=== PATIENT | male | born 1985 | race Caucasian/White ===

== ENCOUNTER 2022-09-06 13:41 | Emergency (ER) | payer OTHER, SELFPAY ==
--- NOTE | ~2022-09-06 | CT_ITS ---
EXAMINATION: CT abdomen pelvis wo con DATE: 09/06/2022 16:05 INDICATION: right flank pain TECHNIQUE: Computed tomography (CT) of the abdomen and pelvis was performed without intravenous contr ast. Automated exposure control and iterative reconstruction technique were employed. The dose-length product was 731.44 mGy-cm. COMPARISON: None. FINDINGS: Lower thorax: Small hiatal hernia. Mild cardiomegaly. Liver: Enlarged. Multiple cysts. Biliary/Gallbladder: Gallbladder is normal. No bile duct dilation. Pancreas: No mass or duct dilation. Spleen: Normal. Adrenals:No mass. Kidneys: No mass, stone, or hydronephrosis. GI tract: No small or large bowel dilation. Normal appendix. Mesentery/Peritoneum: No ascites, mass, or free air. Retroperitoneum: No mass. Pelvis: Pelvic organs are within normal limits. Soft Tissues: Soft tissues and body wall unremarkable. Bones: No acute osseous finding. IMPRESSION: No acute abdominopelvic process detected. Cardiomegaly. Hepatomegaly. Reviewed, dictated and finalized at location K. NCE BRIDGE INSPECTOR
[2022-09-06 13:45] VITALS: BP 170/73; PULSE 77; RESP 20; TEMP 37.2; O2SAT 100
--- NOTE | 2022-09-06 15:51 | ED.BACK ---
HPI - Back Pain/Injury General Chief Complaint: Back Pain/Injury Stated Complaint: LOWER BACK PAIN Time Seen by Provider: 09/06/22 14:59 Source: patient and RN notes reviewed Mode of arrival: wheelchair Limitations: no limitations History of Present Illness HPI Narrative: This is a 36 year old male who presents for evaluation of right lower back pain. He states he has been dealing with low back pain for years but he has never had pain this severe. He developed severe nonradiation right lower back pain this morning when he got up. His pain is worse with trying to walk or stand. He has not taken any thing for his pain. He denies leg weakness, numbness, tingling, nausea or vomiting. He reports chills and subjective fever last night. He rates his pain as 5/10 with sitting in wheel chair and not moving. Related Data Allergies Allergy/AdvReac Type Severity Reaction Status Date / Time No Known Allergies Allergy Verified 09/06/22 13:48 Review of Systems Review of Systems: All systems reviewed & are unremarkable except as noted in HPI and below Constitutional: Constitutional: Reports chills, Denies fatigue and Reports fever(s) ENT: Denies nasal congestion and Denies sore throat Respiratory: Respiratory: Reports cough Gastrointestinal: Gastrointestinal: Denies abdominal pain, Denies nausea and Denies vomiting Genitourinary: Genitourinary: Denies hematuria, Denies oliguria, Denies testicular pain and Denies urinary frequency Musculoskeletal: Musculoskeletal: Reports back pain PMFSH Past Medical History Medical History Patient denies medical problems Surgical History Surgical History No pertinent past surgical history Social History Social History (Updated 09/06/22 @ 15:54 by Guillermina Carrera MD) Smoking status: Never smoker Exam Const: General: no acute distress Nutritional Appearance: well nourished Orientation/consciousness: patient oriented x3 HENMT: Head: normal to inspection Eyes: EOM: EOMs intact bilaterally Neck: Neck: normal visual inspection Chest: Chest palpation & inspection: normal inspection of the chest Resp: Effort & Inspection: normal respiratory effort Auscultation: clear to auscultation bilaterally Cardio: Rate: regular rate Rhythm: regular rhythm Heart sounds: no murmurs GI: GI Palp: Yes Soft to palpation, No Tenderness to palpation present (GI), No Guarding due to palpation present (GI) and No Rigid due to palpation Auscultation: normal bowel sounds : General: Yes no CVA tenderness Back/Spine/Pelvis: Back: no CVA tenderness Skin: General skin exam: normal color Rashes: no rashes Wounds: no wounds Neuro: General: patient oriented x3, moves all extremities and CN's II-XI intact bilaterally Speech: normal speech Extrem: General: normal to inspection Psych: Mental Status: mental status grossly normal Affect: normal affect Attitude: cooperative Course Reevaluation(s) Reevaluation #1: I have discussed with patient that he has been found to have influenza A as cause of his subjective fever and chills last night. Ct does not show kidney stone. His pain is likely back sprain. I have discussed discharge plan and follow up . HE is no acute distress. He states he does not need work note. Date: 09/06/22 Time: 17:18 Vital Signs Vital signs: Vital Signs Temperature 99.0 F 09/06/22 13:45 Pulse Rate 77 09/06/22 13:45 Respiratory Rate 20 09/06/22 13:45 Blood Pressure 170/73 H 09/06/22 13:45 Pulse Oximetry 100 09/06/22 13:45 Oxygen Delivery Room Air 09/06/22 13:45 Temperature 99.0 F 09/06/22 13:45 Pulse Rate 94 09/06/22 17:30 Respiratory Rate 16 09/06/22 17:30 Blood Pressure 155/96 H 09/06/22 17:30 Pulse Oximetry 97 09/06/22 17:30 Oxygen Delivery Room Air 09/06/22 13:45 MDM - Back Pain/Injury Lab Data Attest
[2022-09-06] MEDS: HYDROmorphone HCL INJ (*CRX) 1 MG/ML SYR 0.5 MG IV PUSH (15:52)
[2022-09-06] MEDS: ONDANSETRON INJ 4 MG/2 ML VIAL IV PUSH (15:54)
[2022-09-06] MEDS: SODIUM CHLORIDE 0.9% IV 1,000 ML 999 ML IV CONT (15:55)
[2022-09-06 16:23] LABS: Basophils Percent Auto 0.3 % (0.2-1.2); Eosinophils Absolute Auto 0.2 K/mm3 (0-0.3); Hematocrit 51.6 % (42.0-52.0); Immature Granulocyte Absolute 0.01 K/mm3 (0.00-0.031); Immature Granulocyte Percent A 0.2 % (0-0.5); Lymphocytes Absolute Auto 0.67 K/mm3 (0.9-3.2); Lymphocytes Percent Auto 11.7 % (18.3-44.2); Mean Corpuscular HGB Conc 32.9 g/dl (32-36); Mean Corpuscular Hemoglobin 32.4 pg (26-34); Mean Corpuscular Volume 98.3 fl (80-100); Mean Platelet Volume 9.6 fl (7.4-10.4); Monocytes Absolute Auto 0.9 K/mm3 (0.1-0.6); Monocytes Percent Auto 15.4 % (2.6-8.5); Neutrophils Percent Auto 69.4 % (45.5-73.1); Platelet Count Result 190 k/mm3 (150-375); Red Blood Count 5.25 M/mm3 (4.6-6.20); Red Cell Distribution Width 12.7 % (11.5-14.5); White Blood Count 5.7 K/mm3 (4.5-10.0)
[2022-09-06 16:27] LABS: Appearance Urine Clear (Clear); Bilirubin Urine Negative (Negative); Blood Urine Negative (Negative); Color Urine Yellow (Yellow); Glucose Urine UA Negative (Negative); Ketones Urine Negative (Negative); Leukocyte Esterase Ur Negative LEU/UL (Negative); Nitrate Urine Negative (Negative); Protein Urine Negative (Negative); pH Urine 7.5 (5.0-9.0)
[2022-09-06 16:29] LABS: Add Urine Microscopic? NO
[2022-09-06 16:37] LABS: Alanine Aminotransferase 51 U/L (6-50); Albumin Level 4.3 g/dL (3.5-5.1); Alkaline Phosphatase 51 U/L (38-126); Anion Gap 8 mmol/L (8-16); Aspartate Amino Transferase 57 U/L (17-59); Bilirubin,Total 0.5 mg/dL (0.2-1.3); Blood Urea Nitrogen 7 mg/dL (9-20); Calcium 8.7 mg/dL (8.4-10.2); Carbon Dioxide 28 mmol/L (22-30); Chloride 99 mmol/L (98-107); Estimated CRCL calculation 127 ml/min; Estimated Glomerular Filt Rate > 60; Glucose 83 mg/dL (65-110); Potassium 4.1 mmol/L (3.4-5.0); Sodium 135 mmol/L (137-145)
[2022-09-06 16:58] LABS: Influenza A QL RT-PCR Positive (Negative); Influenza B QL RT-PCR Negative (Negative); SARS-CoV-2 RNA PCR Negative
[2022-09-06 17:30] VITALS: BP 155/96; PULSE 94; RESP 16; O2SAT 97
[2022-09-06] MEDS: KETOROLAC 30 MG/ML VIAL (*BKC) IV PUSH (17:30)
[2022-09-06] MEDS: methocarbamoL 500 MG TABLET PO (17:54)
[2022-09-06] MEDS: OSELTAMIVIR PHOSPHATE 75 MG CAPSULE PO (17:54)
== END 2022-09-06 18:16 | disposition home or self-care (01) ==
PROVIDERS: Emergency Provider General Practice
DX: J10.1 Influenza due to other identified influenza virus with other respiratory manifestations (principal); M54.50 Low back pain, unspecified; Z20.822 Contact with and (suspected) exposure to COVID-19
CPT/HCPCS: 36415; 74176; 80053; 81003; 85025; 87636; 96361; 96374; 96375; 99284; A9270; J1170; J1885; J2405; J7030

== ENCOUNTER 2023-07-12 10:28 | Emergency (ER) | payer OTHER, SELFPAY ==
[2023-07-12 10:46] VITALS: BP 192/84; PULSE 77; RESP 18; TEMP 36.8; O2SAT 99
[2023-07-12 11:41] LABS: Basophils Percent Auto 0.4 % (0.2-1.2); Eosinophils Absolute Auto 0.1 K/mm3 (0-0.3); Eosinophils Percent Auto 0.8 % (0-4.4); Hematocrit 51.4 % (42.0-52.0); Hemoglobin 17.1 g/dL (14.0-18.0); Immature Granulocyte Absolute 0.03 K/mm3 (0.00-0.031); Immature Granulocyte Percent A 0.3 % (0-0.5); Lymphocytes Absolute Auto 1.32 K/mm3 (0.9-3.2); Mean Corpuscular HGB Conc 33.3 g/dl (32-36); Mean Corpuscular Hemoglobin 31.7 pg (26-34); Mean Corpuscular Volume 95.2 fl (80-100); Mean Platelet Volume 8.9 fl (7.4-10.4); Monocytes Absolute Auto 0.7 K/mm3 (0.1-0.6); Monocytes Percent Auto 6.7 % (2.6-8.5); Neutrophils Absolute Auto 8.8 K/mm3 (1.3-6.7); Neutrophils Percent Auto 79.8 % (45.5-73.1); Platelet Count Result 272 k/mm3 (150-375); Red Cell Distribution Width 12.8 % (11.5-14.5)
[2023-07-12 11:50] LABS: Alanine Aminotransferase 61 U/L (6-50); Albumin Level 4.3 g/dL (3.5-5.1); Alkaline Phosphatase 48 U/L (38-126); Anion Gap 6 mmol/L (8-16); Aspartate Amino Transferase 70 U/L (17-59); Bilirubin,Total 0.8 mg/dL (0.2-1.3); Blood Urea Nitrogen 9 mg/dL (9-20); Calcium 9.3 mg/dL (8.4-10.2); Carbon Dioxide 27 mmol/L (22-30); Chloride 102 mmol/L (98-107); Estimated CRCL calculation 123 ml/min; Estimated Glomerular Filt Rate > 60; Glucose 89 mg/dL (65-110); Potassium 3.6 mmol/L (3.4-5.0); Sodium 135 mmol/L (137-145)
[2023-07-12 11:52] LABS: Prothrombin Time 13.2 Seconds (11.1-14.7)
[2023-07-12 11:53] LABS: Partial Thromboplastin Time 27.5 SECONDS (22.3-36.8)
--- NOTE | 2023-07-12 12:09 | PC.NURSE ---
assisted SUNDAR Stewart with Occ blood test. Blasting Entry Specialist provided.
--- NOTE | 2023-07-12 12:26 | ED.GENADULT ---
[facility] - General Adult General Chief complaint: GI Bleed Stated complaint: rectal bleeding Time Seen by Provider: 07/12/23 11:52 Source: patient Mode of arrival: ambulatory Limitations: no limitations History of Present Illness [facility] narrative: This is a 37-year-old male who presents to the ED with chief complaint of rectal bleeding beginning this morning. Reports bright red blood per rectum. Patient reports he had noticed some discomfort/fullness in the rectal area while trying to have a bowel movement. He reports tenesmus but difficulty with actually performing the bowel movement. Reports he noticed blood on the tissue paper and then noticed that blood was going into the toilet bowl. states he has never had anything like this before. Denies problems with urination, abdominal pain, nausea, vomiting. Denies melena. Related Data Allergies Allergy/AdvReac Type Severity Reaction Status Date / Time No Known Allergies Allergy Verified 07/12/23 10:48 Review of Systems Review of Systems: All systems as dictated in [facility] Past Medical History Medical History Patient denies medical problems Surgical History Surgical History No pertinent past surgical history Social History Social History (System 11/12/22 @ 12:46 by Heavenly Arroyo) Smoking status: Never smoker Second hand tobacco smoke exposure: No Alcohol intake: current Exam Narrative: GENERAL: Well-appearing, well-nourished, and in no acute distress. HEAD: Normocephalic, atraumatic. EYES: PERRLA and EOMI. ENT: Nares clear, no rhinorrhea or epistaxis. Mucous membranes moist. Oropharynx without tonsillar hypertrophy exudate or other lesions. NECK: Supple. No adenopathy or masses. CHEST: No respiratory distress. Clear to auscultation. No wheezes rales or rhonchi HEART: Regular rate and rhythm. No murmur heard. Normal peripheral pulses. ABDOMEN: Soft, nontender, nondistended, normal active bowel sounds. MSK: Normal range of motion. No edema. SKIN: Warm, dry, no rash. NEURO: Alert and oriented x3. No focal deficits. PSYCH: Normal mood and affect. Rectal exam performed with female RN button clamper present: No evidence of any external lesions including fissures or external hemorrhoids There is area of swelling to the internal rectum that is moderately tender. Hemoccult card is negative Course Vital Signs Vital signs: Vital Signs Temperature 98.2 F 07/12/23 10:46 Pulse Rate 77 07/12/23 10:46 Respiratory Rate 18 07/12/23 10:46 Blood Pressure 192/84 H 07/12/23 10:46 Pulse Oximetry 99 07/12/23 10:46 Temperature 98.2 F 07/12/23 10:46 Pulse Rate 82 07/12/23 12:42 Respiratory Rate 17 07/12/23 12:42 Blood Pressure 168/92 H 07/12/23 12:42 Pulse Oximetry 98 07/12/23 12:42 Medical Decision Making MDM Narrative Medical decision making narrative: This is a 37-year-old male who presents to the ED with chief complaint of bright red blood per rectum that occurred today while having a bowel movement. Reports some discomfort in the rectal area. Vitals show initial blood pressure pressure but otherwise intact. Physical exam is largely benign. Rectal exam is Hemoccult negative. He does have an area of swelling internally that may be consistent with internal hemorrhoids. Lab work shows very slightly elevated white count at 11.0 and normal hemoglobin and hematocrit. PT/INR is normal. CMP is largely unremarkable. Symptoms are most likely consistent with internal hemorrhoid. Low suspicion of infectious process. Feel that CT scan is of low diagnostic yield at this point. Shared decision making to avoid the CT and proceed with treatment for possible internal hemorrhoids. Anusol prescribed. Instructed on sitz bath's. GI referral given. Pt will be discharged in stable condition. Return precautions given and s
[2023-07-12 12:42] VITALS: BP 168/92; PULSE 82; RESP 17; O2SAT 98
== END 2023-07-12 12:43 | disposition home or self-care (01) ==
PROVIDERS: General Practice; Emergency Provider Physician Assistant
DX: K62.5 Hemorrhage of anus and rectum (principal)
CPT/HCPCS: 36415; 80053; 85025; 85610; 85730; 86850; 86900; 86901; 99283

== ENCOUNTER 2024-11-13 09:59 | Emergency (ER) | payer OTHER, SELFPAY ==
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
[2024-11-13 10:02] VITALS: BP 166/83; PULSE 82; RESP 18; TEMP 36.6; O2SAT 98
--- OUTSIDE RECORDS SUMMARY | 2024-11-13 10:44 | XMS_ITS | Clinical Summary ---
Author Organization [facility] [address] Address [address] [place] [address] Phone Care Team Providers Care Cured Meat Packing Supervisor Name Role Phone Jenn Dey NP Primary Care Provider [phone] Allergies No known active allergies Medications buPROPion XL (WELLBUTRIN XL) 150 mg 24 hr tablet Take 1 tablet (150 mg total) by mouth every morning for 10 days, THEN 2 tablets (300 mg total) every morning. 130 tablet 05/04/2022 Active Active Problems No known active problems Immunizations Name Administration Dates Next Due DTP 01/14/1990, 7,07/17/1986,05/15/1986,0 03/13/1986 Hep B Vaccine 04/02/1998 Hep B, Adolescent or Pediatric 11/06/1997,1996 Influenza, Unspecified 12/11/2021(Deferred: Lizette ent Refused) OPV 01/14/1990,05/14/1987,05/15/1986 ,03/13/1986 Social History Tobacco Use Types Packs/Day Years Used Date Smoking Tobacco: Former Smokeless Tobacco: Current PHQ-2 Answer Date Recorded PHQ-2 Total Score (If total score is 3 or more points, staff should administer the PHQ-9) 4 05/04/2022 Personal Safety Answer Date Recorded Getting School Help Needed Not on file 12/05 Sex and Gender Information Value Date Recorded Sex Assigned at Not on file 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 Gender Identity Not on file Sexual Orientation Not on file Obstetrics History Last Filed Vital Signs Vital Sign Reading Time Taken Comments Blood Pressure 144/77 05/04/2022 3:54 PM CDT Pulse 68 05/04/2022 3:54 PM CDT Temperature 36.7 ??C (98 ??F) 03/23/2022 3:49 PM CDT Respiratory Rate 20 05/04/2022 3:54 PM CDT Oxygen Saturation 98% 05/04/2022 3:54 PM CDT Inhaled Oxygen Concentration - - Weight 107 kg (236 lb) 05/04/2022 3:54 PM CDT Height 182.9 cm (6' 0.01 ) 05/04/2022 3:54 PM CD T Body Mass Index 32 05/04/2022 3:54 PM CDT Plan of Treatment Health Maintenance Due Date Last Done Comments Hepatitis C Screening 1985 DTaP/Tdap/Td Vaccine (6 - Tdap) 1996 01/14/1990, 08/13/1987, 07/17/1986, Additional history exists Varicella Vaccines (1 of 2 - 13+ 2-dose series) 1998 Regular Well Visit/Exam 18-64 09/14/2020 09/14/2019 Depression Screening 05/04/2023 05/04/2022, 01/14/2022, 09/14/2019 Influenza Vaccine (#1) 2024 HPV Vaccines Aged Out No longer eligi ble based on patient's age to complete this topic Pneumococcal vaccine <65 Aged Out No longer eligible based on patient's age to complete this topic [place] [address] Member Subscriber Plan / Payer (Ef fective 2017-Present) Name:Oli Bernard Relation to Subscriber:Self Name:Oli Bernard Payer ID:[id number] (NAIC) Group ID:[id number] Type:COMMERCIAL Address: [address] [address] Care Teams Cured Meat Packing Supervisor Relationship Specialty Start Date End Date Jenn Dey NP PCP - General Family Medicine 01/14/22
--- OUTSIDE RECORDS SUMMARY | 2024-11-13 10:44 | XMS_ITS | Clinical Summary ---
Author Organization [facility] Address [address] [place] [address] Phone Care Team Providers Care Gaming Investigator Name Role Phone Stephen Poole MD Primary Care Provider [phone] Allergies No known active allergies Medications No known medications Active Problems No known active problems Family History Relation Name Status Comments Father Alive Mother Alive Sister Alive Social History Tobacco Use Types Packs/Day Years Used Date Smoking Tobacco: Former Smokeless Tobacco: Never Alcohol Use Standard Drinks/Week Comments Yes 0 (1 standard drink = 0.6 oz pur e alcohol) social PHQ-2 Answer Date Recorded Total Score - Questions 1-9 0 05/0 01/2021 Sex and Gender Information Value Date Recorded Sex Assigned at Not on file Legal Sex Male 1:16 PM CDT Gender Identity Not on file Sexual Orientation Not on file Last Filed Vital Signs Vital Sign Reading Time Taken Comments Blood Pressure 126/82 02/11/2021 8:08 AM CDT Pulse 53 02/11/2021 8:08 AM CDT Temperature 36.5 ??C (97.7 ??F) 02/11/2021 8:08 AM CD T Respiratory Rate 16 02/11/2021 8:08 AM CDT Oxygen Saturation 98% 02/11/2021 8:08 AM CDT Inhaled Oxygen Concentration - - Weight 104.8 kg (231 lb) 02/11/2021 8:08 AM CDT Height 182.9 cm (6') 02/11/2021 8:08 AM CDT Body Mass Index 31.33 02/11/2021 8:08 AM CDT Plan of Treatment Health Maintenance Due Date Last Done Comments Hepatitis C Virus (HCV) Screening 1985 TdaP Immunization 1985 Influenza Immunization (#1) 2024 SARS-COV-2 Immunization (2023- season) 2024 Respiratory Syncytial Virus (RSV) Immunization (Adult) (1 - 1-dose 75+ series) 2060 DTaP/Tdap/Td Immunization Discontinued 1989, 08/13/1987, 07/17/1986, Additional history exists Hepatitis B Immunization Completed 998, 11/06/1997, 10/02/1997 Meningococcal Immunization (ACWY) Aged Out No longer eligible based on patient's age to complete this topic Pneumococcal Immunization Combined Aged Out No longer eligible based on patient's age to complete this topic Rotavirus Immunization Aged Out No lo nger eligible based on patient's age to complete this topic Insurance [facility] Care Teams Gaming Investigator Relationship Specialty Start Date End Date Stephen Poole MD #[address] [address] PCP - General Family Medicine 02/10/21
--- OUTSIDE RECORDS SUMMARY | 2024-11-13 10:44 | XMS_ITS | Referral Summary ---
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 [place] [id number] Care Teams Bit Setter Relationship Specialty Start Date End Date Jenn Dey NP PCP - General Family Medicine 01/14/22
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
[2024-11-13] MEDS: HYDROcodone/acetaminophen (*CRX) 5-325 MG TABLET 1 TAB PO (12:17)
--- OUTSIDE RECORDS SUMMARY | 2024-11-13 12:56 | XMS_ITS | Referral Summary ---
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 [place] [id number] Care Teams Auditing Control Clerk Relationship Specialty Start Date End Date Jenn Dey NP PCP - General Family Medicine 01/14/22
--- OUTSIDE RECORDS SUMMARY | 2024-11-13 12:56 | XMS_ITS | Clinical Summary ---
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
--- OUTSIDE RECORDS SUMMARY | 2024-11-13 12:56 | XMS_ITS | Clinical Summary ---
Author Organization [facility] Address [address] [place] [address] Phone Care Team Providers Care Car Cleaner Name Role Phone Stephen Poole MD Primary Care Provider [phone] Allergies No known active allergies Medications No [...] patient's age to complete this topic Insurance [facility] Care Teams Car Cleaner Relationship Specialty Start Date End Date Stephen Poole MD #[address] [address] PCP - General Family Medicine 02/10/21
== END 2024-11-13 13:07 | disposition home or self-care (01) ==
PROVIDERS: Emergency Provider Physician Assistant
DX: S80.11XA Contusion of right lower leg, initial encounter (principal); W26.0XXA Contact with knife, initial encounter
CPT/HCPCS: 73700; 99284; A9270